=== PATIENT | female | born 1960 | race American Indian/Alaskan Native ===

== ENCOUNTER 2021-07-02 19:20 | Emergency (ER) | payer SELFPAY ==
[~2021-07-02 19:20] MED LIST: ATROPINE 0.1% (1 MG/10 ML) CARDIAC SYRINGE ONE; DOPamine/D5W 800 MG/250 ML DRIP IV ONE; EPINEPHrine 1 MG/10 ML SYRINGE ONE; EPINEPHrine 30 MG/30 ML INJ IV ONE; ETOMIDATE 20 MG/10 ML INJ IV ONE; LIDOCAINE PF 100 MG/5 ML (CARDIAC SYRINGE) IV ONE; MIDAZOLAM 5 MG/5 ML INJ MDV IV ONE; ROCURONIUM 50 MG/5 ML INJ IV ONE; SODIUM BICARB 8.4% 50 MEQ/50 ML SYRINGE IV ONE
--- NOTE | 2021-07-02 20:18 | Emergency Department Report ---
HPI - General Time Seen by Provider: 07/02/21 19:52 - HPI HPI: Room 1 The patient is a 61-year-old female present with a chief complaint of cardiac arrest. Per EMS the patient collapsed at work and 911 was called. First evaporator operator on scene states the patient was lethargic but speaking but then went unresponsive. She was seen to be in asystole and ACLS was initiated. Patient was intubated by EMS prior to arrival the patient was administered 3 rounds of epi and defibrillated once. Last rhythm per EMS was PEA. Upon arrival to the ED ACLS protocols were continued however when the EMS ET tube was checked it appears of his esophageal intubation. EMS ET tube was removed and the patient was intubated by myself using the glide scope. ACLS protocols were continued with intermittent return of spontaneous circulation however the patient finally succumbed and further efforts were deemed futile. ED Past Medical Hx - Past Medical History Hx Hypertension: Yes - Surgical History Past Surgical History?: No - Family History Family history: no significant - Social History Smoking Status: Unknown if ever smoked ED Review of Systems ROS: Stated complaint: CARDIAC ARREST Other details as noted in HPI Comment: Unobtainable due to pts medical conditions Physical Exam - Physical Exam Physical Exam: GENERAL: The patient is well-developed well-nourished female lying on stretcher unresponsive. [] HEENT: Normocephalic. Atraumatic. Patient has moist mucous membranes. Oropharynx filled with serosanguineous fluid NECK: Supple. Trachea midline CHEST/LUNGS: No spontaneous respirations HEART/CARDIOVASCULAR: No heart sounds. PEA on monitor ABDOMEN: Abdomen is soft, nontender. Patient has normal bowel sounds. There is no abdominal distention. SKIN: There is no rash. There is no edema. There is no diaphoresis. NEURO: GCS 3 T MUSCULOSKELETAL:There is no evidence of acute injury. ED Course - Consultations Consultation #1: 07/02/21 19:46 EKG sent to and discussed with interventionalists Dr. [place]-no STEMI ED Medical Decision Making - Differential Diagnosis Cardiac arrest Critical care attestation.: If time is entered above; I have spent that time in minutes in the direct care of this critically ill patient, excluding procedure time. ED Disposition Clinical Impression: Cardiac arrest Disposition: 20 Is pt being admited?: No Does the pt Need Aspirin: No Condition: Poor Time of Disposition: 20:15 (Patient )
--- NOTE | 2021-07-03 17:32 | Electrocardiograph Report ---
[facility] Test Date: 2021-07-02 Test Time: 19:38:01 Pat Name: NAVEEN JOHNSON Department: Room: Gender: F [employer]: KOREY : 1960 Requested By: STEWART LINDSAY Order Number: [id number] Reading MD: Franki Chadwick Measurements Intervals [place] Rate: 52 P: [place]: QRS: 12 QRSD: 92 T: -14 QT: 474 QTc: 443 Interpretive Statements Sinus bradycardia Nonspecific, diffuse ST segment elevation Borderline inferior Q waves No previous ECG available for comparison Electronically Signed On 07-03-2021 17:32:10 EST by Franki Chadwick
== END 2021-07-03 01:09 ==
LOC: ED 19:20
DX: I46.9 Cardiac arrest, cause unspecified (principal); I10 Essential (primary) hypertension
CPT/HCPCS: 93005; 99285; J0171; J0461; J1265; J2001; J2250; J3490